=== PATIENT | female | born 1975 | race Caucasian/White ===

== ENCOUNTER 2023-02-02 15:12 | Outpatient (CLI) | payer BC, SELFPAY ==
--- NOTE | 2023-02-02 15:20 | CRLHL7_ITS ---
For Patients: As a result of the Century Cures Act, medical imaging exams and procedure reports are released immediately into your electronic medical record. You may view this report before your referring provider. If you have questions, please contact your health care provider. BILATERAL SCREENING MAMMOGRAM WITH COMPUTER-AIDED DETECTION AND TOMOSYNTHESIS TECHNIQUE: CC and MLO views were obtained. These mammographic images have been obtained using full-field digital technique. These mammographic images were interpreted with the benefit of computer-aided detection. Breast Tomosynthesis was used in this interpretation. COMPARISON FILM: 08/26/21, 07/02/20, 10/05/15. FINDINGS: The breasts are heterogeneously dense, which may obscure small masses IMPRESSION: There is no radiographic evidence for malignancy. ASSESSMENT: BI-RADS Category 1: Negative RECOMMENDATION: Routine screening mammogram in 1 year. A lay language report of this examination will be provided to the patient. Heri Rick M.D. Diagnostic Radiologist [email or web address] TRACE/Dictated by: Heri Rick MD @ 02/06/2023 8:49:00 AM (Electronically Signed)
== END 2023-02-02 15:13 | disposition home or self-care (01) ==
LOC: MAMMO 15:19
PROVIDERS: PCP Family Medicine; Visit Provider Obstetrics & Gynecology
DX: Z12.31 Encounter for screening mammogram for malignant neoplasm of breast (principal); R92.2 Inconclusive mammogram
CPT/HCPCS: 77063; 77067

== ENCOUNTER 2024-02-22 07:38 | Outpatient (CLI) | payer BC, SELFPAY ==
--- OUTSIDE RECORDS SUMMARY | 2024-02-24 02:26 | XMS_ITS | Clinical Summary ---
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 [facility] Allergies No known active allergies Medications Medication Sig Dispensed Refills Start Date End Date Status amitriptyline (ELAVIL) 10 MG tablet PLEASE SEE ATTACHED FOR DETAILED DIRECTIONS 06/12/2023 Active PARoxetine (PAXIL) 10 MG tablet Take 1 Tablet (10 mg) by mouth daily. 07/14/2023 Active SUMAtriptan (IMITREX) 100 MG tablet SMARTSI Tablet(s) By Mouth 1-2 Times Daily 07/14/2023 Active Active Problems Problem Noted Date Diagnosed Date Impingement syndrome of right shoulder 4 Social History Tobacco Use Types Packs/Day Years Used Date Smoking Tobacco: Never Assessed Sex and Gender Information Value Date Recorded Sex Assigned at Not on file Gender Identity Not on file Sexual Orientation Not on file Plan of Treatment Health Maintenance Due Date Last Done Comments Cervical Cancer Screening Due 1975 Colon Cancer Screening Plan Due 1975 Hep C Screening (Preventive Services) 1975 Mammogram 1975 HIV Screening (Preventive Services) 1991 Adult Preventive Visit 1993 HepB (1) 1994 Cholesterol 2020 COVID-19 Vaccine ( season) 2024 05/30/2021, 11/01/2020, 10/15/2020, Additional history exists Influenza (#1) 2024 05/04/2018 Zoster/Shingles (1 of 2) 2025 DTaP/Tdap/Td (3 - Tdap) 04/23/2030 04/23/2020, 12/26 HepA Aged Out No longer eligi ble based on patient's age to complete this topic Hib Aged Out No longer eligi ble based on patient's age to complete this topic IPV (Polio) Aged Out No longer eligi ble based on patient's age to complete this topic MCV4 Aged Out No longer eligi ble based on patient's age to complete this topic Pneumococcal Aged Out No longer eligi ble based on patient's age to complete this topic [address] [place] [id number]
== END 2024-02-22 07:39 | disposition home or self-care (01) ==
LOC: NFLDREF 02-24 02:25
PROVIDERS: PCP Family Medicine; Referring Provider Family Medicine; Visit Provider Obstetrics & Gynecology
DX: Z01.419 Encounter for gynecological examination (general) (routine) without abnormal findings (principal); R63.5 Abnormal weight gain; Z13.6 Encounter for screening for cardiovascular disorders
CPT/HCPCS: 80061; 84443

== ENCOUNTER 2024-04-03 12:42 | Outpatient (CLI) | payer BC, SELFPAY ==
--- OUTSIDE RECORDS SUMMARY | 2024-04-03 12:44 | XMS_ITS | Clinical Summary ---
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
--- NOTE | 2024-04-03 13:00 | CRLHL7_ITS ---
For Patients: As a result of the Century Cures Act, medical imaging exams and procedure reports are released immediately into your electronic medical record. You may view this report before your referring provider. If you have questions, please contact your health care provider. BILATERAL SCREENING MAMMOGRAM WITH COMPUTER-AIDED DETECTION AND TOMOSYNTHESIS TECHNIQUE: CC and MLO views were obtained. These mammographic images have been obtained using full-field digital technique. These mammographic images were interpreted with the benefit of computer-aided detection. Breast Tomosynthesis was used in this interpretation. COMPARISON FILM: 02/02/23, 08/26/21, 07/02/20. FINDINGS: The breasts are extremely dense, which lowers the sensitivity of mammography IMPRESSION: There is no radiographic evidence for malignancy. ASSESSMENT: BI-RADS Category 1: Negative RECOMMENDATION: Routine screening mammogram in 1 year. A lay language report of this examination will be provided to the patient. Heri Rick M.D. Diagnostic Radiologist [email or web address] EVANS/russell / bM/Dictated by: Heri Rick MD @ 04/04/2024 10:44:00 AM (Electronically Signed)
== END 2024-04-03 12:43 | disposition home or self-care (01) ==
LOC: MAMMO 12:43
PROVIDERS: PCP Family Medicine; Visit Provider Obstetrics & Gynecology
DX: Z12.31 Encounter for screening mammogram for malignant neoplasm of breast (principal); R92.343 Mammographic extreme density, bilateral breasts
CPT/HCPCS: 77063; 77067

== ENCOUNTER 2024-07-22 09:02 | Outpatient (CLI) | payer BC, SELFPAY | END 2024-07-22 09:03 | disposition home or self-care (01) | LOC: NFLDREF 09:02 | PROVIDERS: PCP Family Medicine; Visit Provider Obstetrics & Gynecology | DX: N95.1 Menopausal and female climacteric states (principal) | CPT/HCPCS: 80053 ==

== ENCOUNTER 2025-03-26 10:06 | Outpatient (CLI) | payer BC, SELFPAY ==
[2025-03-28 06:36] LABS: HPV Source Cervical
[2025-03-31 09:19] LABS: Pap Test Digital Imaging Done
== END 2025-03-26 10:07 | disposition home or self-care (01) ==
PROVIDERS: PCP Family Medicine; Visit Provider Obstetrics & Gynecology
DX: Z12.4 Encounter for screening for malignant neoplasm of cervix (principal)
CPT/HCPCS: 87624; 87625; 88141; 88142; 88175

== ENCOUNTER 2025-04-27 07:32 | Outpatient (CLI) | payer BC, SELFPAY ==
--- NOTE | 2025-04-27 07:45 | CRLHL7_ITS ---
For Patients: As a result of the Century Cures Act, medical imaging exams and procedure reports are released immediately into your electronic medical record. You may view this report before your referring provider. If you have questions, please contact your health care provider. INDICATION: BILATERAL SCREENING MAMMOGRAM, ASYMPTOMATIC 50 Y/O FEMALE COMPARISON: 04/03/2024, 02/02/2023, 08/26/2021 TECHNIQUE: Digital mammogram in CC and MLO projections including computer-aided detection (CAD) and tomosynthesis. BREAST COMPOSITION: The breasts are heterogeneously dense, which may obscure small masses. FINDINGS: No suspicious findings. ASSESSMENT: BI-RADS 1 Negative RECOMMENDATION: Annual screening mammogram. A lay language report of this examination will be provided to the patient. Dictated by: Lexus Alva MD @ 04/28/2025 09:12:39 (Electronically Signed)
== END 2025-04-27 07:33 | disposition home or self-care (01) ==
LOC: MAMMO 07:33
PROVIDERS: PCP Family Medicine; Visit Provider Obstetrics & Gynecology
DX: Z12.31 Encounter for screening mammogram for malignant neoplasm of breast (principal); R92.333 Mammographic heterogeneous density, bilateral breasts
CPT/HCPCS: 77063; 77067

== ENCOUNTER 2025-05-18 13:36 | Outpatient (CLI) | payer BC, SELFPAY ==
--- NOTE | 2025-05-18 14:00 | CRLHL7_ITS ---
For Patients: As a result of the Century Cures Act, medical imaging exams and procedure reports are released immediately into your electronic medical record. You may view this report before your referring provider. If you have questions, please contact your health care provider. Indication: pelvic back pain assess Essure placement Technique: Noncontrast CT abdomen and pelvis Please note that all CT scans at this facility use dose modulation, iterative reconstruction, and/or weight-based dosing when appropriate to reduce radiation dose to as low as reasonably achievable. Comparison: None Findings: Lung bases are clear. No pleural effusion. Noncontrast enhanced liver is within normal limits. Normal spleen. Adrenal glands are normal. Pancreas and gallbladder unremarkable. Normal kidneys. Bladder is partially distended. Increased hyperdense stool is present within the colon. No small bowel obstruction. The appendix is normal. No free air, excess pelvic free fluid or abscess. No adenopathy. Grade 1 degenerative spondylolisthesis of L4 on L5. No vertebral body compression fracture. Normal position of Essure implants. Impression: Normal position of Essure implants. Constipation with delayed colonic motility. No bowel obstruction. Please note that all CT scans at this facility use dose modulation, iterative reconstruction, and/or weight-based dosing when appropriate to reduce radiation dose to as low as reasonably achievable. Dictated by Heri Rick MD @ 05/19/2025 10:12:38 AM (Electronically Signed)
== END 2025-05-18 13:37 | disposition home or self-care (01) ==
LOC: CT 13:37
PROVIDERS: PCP Family Medicine; Visit Provider Obstetrics & Gynecology
DX: K59.00 Constipation, unspecified (principal); Z98.890 Other specified postprocedural states; R10.20 Pelvic and perineal pain unspecified side; M54.9 Dorsalgia, unspecified; M43.16 Spondylolisthesis, lumbar region
CPT/HCPCS: 74176